=== PATIENT | female | born 1935 | race Caucasian/White ===

== ENCOUNTER 2019-04-24 07:06 | Observation (INO) | payer MEDICARE ==
[2019-04-24 08:01] LABS: #Basophils 0.1 thou/uL (0.0-0.2); #Eosinphils 0.1 thou/uL (0.0-0.7); #Monocytes 0.7 thou/uL (0.11-0.59); %Basophils 0.7 % (0.0-1.0); %Eosinophils 0.8 % (0.0-10.0); %Lymphocytes 9.2 % (21.0-51.0); %Monocytes 6.3 % (0.0-10.0); Hemoglobin 14.3 g/dL (12.0-16.0); Mean Corpuscular HGB CONC 33.9 g/dL (32.0-36.0); Mean Corpuscular Hemoglobin 32.1 pg (27.0-31.0); Mean Corpuscular Volume 94.7 fL (78.0-98.0); Mean Platelet Volume 9.5 fL (7.4-10.4); Platelet Count 170 thou/uL (130-400); RBC Distribution Width 12.9 % (11.5-14.5); Red Blood Cell (RBC) Count 4.44 mill/uL (4.20-5.40); White Blood Cell (WBC) Count 10.8 thou/uL (4.8-10.8)
--- NOTE | 2019-04-24 08:04 | RAD ---
EXAM: CHEST ONE VIEW HISTORY: Recent fall/syncopal episode. COMPARISON: None FINDINGS: Cardiac silhouette is magnified by projection but does appear mildly enlarged. The pulmonary vasculat ure is within normal limits mild linear densities are seen at the right lung base which may be related to mild scarring versus atelectasis. No consolidation or pleural fluid is identified. Osteope hui is present. Vascular calcifications are seen in the thoracic aorta. Rounded metallic density overlies midline lower neck likely related to due to overlying external jewelry. IMPRESSION: 1. No acute cardiopulmonary process. 2. Linear scarring versus atelectasis right lung base. 3. Mild cardiomegaly. 4. Osteopenia.
--- NOTE | 2019-04-24 08:17 | CT ---
CT Head without IV contrast COMPARISON: None. HISTORY: Syncopal episode and fall. Patient reports vomiting diarrhea after a fall. TECHNIQUE: Axial CT imaging at 5 mm intervals from vertex through skull base without contrast FINDINGS: There is no evidence of an acute infarction, hemorrhage, mass effect, or midline shift. There is decr eased attenuation seen in the periventricular white matter which is nonspecific but likely attributable to chronic small vessel ischemic changes. There is mild cerebral and cerebellar volume l oss. The ventricular system is normal in size, shape, and position for the degree of sulcal atrophy. Visualized paranasal sinuses are clear. There is mild deformity of the calvarium at the vertex, this is probably developmental in origin. No calvarial fracture is generalized. IMPRESSION: 1. No acute intracranial abnormality demonstrated. 2. Chronic small vessel ischemic changes and cerebral volume loss
[2019-04-24 08:23] LABS: ALT (SGPT) 23 U/L (8-55); AST (SGOT) 25 U/L (5-34); Alkaline Phosphatase 80 U/L (40-110); Anion Gap 11 mmol/L (10-20); BUN (Urea Nitrogen) 39 mg/dL (9.8-20.1); Bilirubin, Total 0.5 mg/dL (0.2-1.2); Calc. Creatinine Clearance 0 mL/min (70-130); Calcium 9.2 mg/dL (7.8-10.44); Carbon Dioxide 25 mmol/L (23-31); Chloride 108 mmol/L (98-107); Estimated GFR-MDRD 48; Globulin 2.7 g/dL (2.4-3.5); Glucose 136 mg/dL (83-110); Potassium 4.1 mmol/L (3.5-5.1); Protein, Total 6.7 g/dL (6.0-8.3); Sodium 140 mmol/L (136-145)
[2019-04-24 09:14] LABS: Bacteria/HPF None Seen HPF (None Seen); Bilirubin Negative (Negative); Blood, Urine 2+ (Negative); Clarity Clear (Clear); Glucose, Urine (Dipstick) Normal (Negative); Leukocyte 25 Leu/uL (Negative); Nitrite Negative (Negative); Protein, Urine (Dipstick) 20 mg/dL (Neg-Trace); Squamous Epithelial 0-3 HPF (0-3); Urobilinogen Normal mg/dL (Less than 2)
--- NOTE | 2019-04-24 09:15 | CT ---
EXAM: CTA of the chest HISTORY: Shortness of breath COMPARISON: None TECHNIQUE: Multiple contiguous axial images were obtained a CTA of the chest with contrast per pulmon wilda embolism protocol. 3-D oblique MIP reformats and direct coronal reformats were performed. FINDINGS: HEART: Global cardiomegaly. PULMONARY ARTERIES: Normal in caliber without filling defects to suggest pulmonary emboli. MEDIASTINUM: No hilar or mediastinal lymphadenopathy. LUNGS: No focal infiltrates or masses. PLEURAL SPACE: No pleural effusion or pneumothorax. CHEST WALL SOFT TISSUES: Unremarkable VISUALIZED OSSEOUS STRUCTURES: Degenerative changes in the spine. VISUALIZED SUBDIAPHRAGMATIC STRUCTURES: Moderate left hydronephrosis. IMPRESSION: 1. No evidence of pulmonary thromboembolism 2. Moderate left hydronephrosis. A renal ultrasound is recommended for better evaluation.
[2019-04-24] MEDS ORDERED: ISOVUE-370 76%-LOCM 1 ML ONE (10:15)
[2019-04-24 11:28] LABS: Troponin I 0.021 ng/mL (< 0.028)
[2019-04-24 13:25] VITALS: BMI 17.8
--- NOTE | 2019-04-24 13:57 | MRI ---
MRI BRAIN WITHOUT CONTRAST: INDICATIONS: Syncope. FINDINGS: There is mild cortical volume loss. Ventricles are normal in size and position, given the degree of a trophy. No evidence of restricted diffusion. No mass or edema. Mild to moderate chronic ischemic white matter changes. No acute process identified. Intracranial and internal carotid arteries and cerebral arteri es show flow voids. IMPRESSION: Moderate chronic ischemic white matter change. No acute process identified. POS: [facility]
--- NOTE | 2019-04-24 14:01 | ULT ---
RENAL ULTRASOUND: INDICATIONS: Evidence of left hydronephrosis noted on CT earlier today. FINDINGS: There is bilateral hydronephrosis, greater on the left. There are multiple calculi in the left kidney with the larger one measuring up to 2 cm. There are two right renal cystic lesions, the largest leti uring approximately 2.5 cm. The urinary bladder is distended and unremarkable. IMPRESSION: 1. Bilateral hydronephrosis, greater on the left. 2. Left renal calculi. 3. Right renal cyst. Consider IVP or CT abdomen and pelvis to assess ureters. POS: [facility]
--- NOTE | 2019-04-24 14:18 | ULT ---
CAROTID DOPPLER: Ultrasound Doppler study is performed on the extracranial carotid arteries. INDICATION: Syncope. TECHNIQUE: Color Doppler, spectral analysis, and velocity recordings obtained. FINDINGS: Ultrasound images show mild intimal thickening throughout both systems. Mild echogenic plaque. Velocity recordings are within normal range. No evidence of hemodynamically significant stenosis. Vertebral arteries show antegrade flow. IMPRESSION: 1. Ultrasound images show intimal thickening and very mild echogenic plaque. 2. No evidence of hemodynamically significant stenosis by velocity recording. POS: [facility]
[2019-04-24] MEDS ORDERED: Ondansetron PF 4 MG/2 ML Vial IVP PRN (15:13)
[2019-04-24] MEDS ORDERED: Ondansetron ODT 4 MG TAB SL PRN (15:13)
[2019-04-24 16:07] LABS: Troponin I Less than 0.010 ng/mL (< 0.028)
[2019-04-24] MEDS ORDERED: Acetaminophen 325 MG TAB PO PRN (16:45)
[2019-04-24] MEDS: Sodium Chloride 0.9% 1,000 ML IV SCH (17:17)
--- NOTE | 2019-04-24 18:24 | HP ---
PRIMARY CARE PHYSICIAN: None. CHIEF COMPLAINT: Syncope. HISTORY OF PRESENT ILLNESS: Ms. Dominguez is an 83-year-old female with no medical history, who had presented to the ED earlier today after she had experienced a syncopal episode at home this morning while her and her were packing for a road trip up to [place] for a family . She states that earlier this morning, she had one episode of nausea, vomiting, and diarrhea, and while she was packing her clothes, she stated that she had started to feel dizzy and shortly after, had fainted, the caught her and had lowered her down to the bed before calling EMS to bring her to the ED. The stated that she was out for roughly 2 to 5 minutes before waking up and seemed to be at her baseline. The patient denied any fever, chills, any headache, blurred vision, dizziness, any chest pain, palpitations, shortness of breath, abdominal pain, nausea, or vomiting. She states that she feels fine without any further symptoms. During her workup in the ED, she underwent a CT of her head which showed no acute disease findings, however, did show some chronic small-vessel changes. Portable chest x-ray was also performed and showed no acute findings, however, did show some linear scarring versus atelectasis in right lung base with mild cardiomegaly. Her D-dimer was found to be elevated above 3. Therefore, CTA of the chest was performed; however, showed no evidence of PE at this time and moderate left hydronephrosis, which had recommended a renal ultrasound for better evaluation. The patient's blood pressure and other vital signs remained stable. However, her orthostatic vital signs were positive for orthostatic hypotension. Her serial troponins were found to be negative x3. Therefore, she was transferred up to the floor for further workup. REVIEW OF SYSTEMS: All other systems reviewed and found to be negative unless mentioned in HPI. PAST MEDICAL HISTORY: None. PAST SURGICAL HISTORY: None. PSYCHIATRIC HISTORY: None. SOCIAL HISTORY: The patient is a nonsmoker, nondrinker, and has denied any illicit drug use. KNOWN ALLERGIES: No known drug allergies. CURRENT HOME MEDICATIONS: None. PHYSICAL EXAMINATION: VITAL SIGNS: Blood pressure 137/73, pulse 60, respirations 14, temperature 97.7, and O2 saturation 98% on room air. GENERAL: The patient is awake, alert, and oriented x3. She is currently lying comfortably in bed and in no acute distress. Her is at bedside. HEENT: Atraumatic, normocephalic. Pupils are round and reactive to light. Extraocular muscles intact. Moist mucous membranes noted. NECK: Soft and supple. Trachea midline. CARDIOVASCULAR: Positive S1 and S2. Regular rate and rhythm. No murmur auscultated. RESPIRATORY: Clear to auscultation bilaterally. No wheezes, rales, or rhonchi. ABDOMEN: Soft, nontender. Bowel sounds present. EXTREMITIES: Moves all extremities equal. Pedal and radial pulses 2+ bilaterally. No edema noted. NEUROLOGIC: Cranial nerves 2 through 12 grossly intact. No focal deficits noted. Speech intact and normal. Gait not assessed. SKIN: Warm, dry and intact. No rashes. No ulceration noted. PSYCHIATRIC: Good mood and affect. LABORATORY DATA: WBC 10.8, RBC 4.44, hemoglobin 14.3, and platelets 170. D-dimer 3.09. Sodium 140, potassium 4.1, anion gap 11, BUN 39, creatinine 1.09, estimated GFR 48, glucose 136, AST 25, ALT 23, and alkaline phosphatase 80. Troponin less than 0.010 x3. DIAGNOSTIC IMAGING: Portable chest x-ray showed no acute findings, however, did show some mild cardiomegaly. CT of the brain showed no acute intracranial abnormality, however, did show some chronic small-vessel ischemic changes and cerebral volume loss. CT of the chest with and without contrast showed no evidence of PE, however, did show moderate left hydronephrosis that had recommended a renal ultrasound for better evaluation. ASSESSMENT AND PLAN: 1. Syncope, the patient's orthostatic vital signs were positive at this time. Therefore, she will be started on gentle hydration and monitored on telemetry for any cardiac arrhythmia. She will also undergo an echocardiogram, an MRI, and a carotid Doppler for further evaluation. 2. Left hydronephrosis. This was found on CTA and had recommended a renal ultrasound, therefore, this will be ordered for further evaluation and further workup or management will be done post-ultrasound results. 3. Deep venous thrombosis and gastrointestinal prophylaxis. 4. Code status, full code. 5. Surrogate decision maker is her spouse, Oleksandr. 6. Disposition pending further workup and clinical findings. Job ID: [id number]
[2019-04-24] MEDS ORDERED: Famotidine 20 MG TAB PO SCH (21:00)
[2019-04-25 05:06] LABS: #Basophils 0.1 thou/uL (0.0-0.2); #Eosinphils 0.2 thou/uL (0.0-0.7); #Lymphocytes 1.5 thou/uL (1.20-3.40); #Monocytes 0.5 thou/uL (0.11-0.59); #Neutrophils 3.2 thou/uL (1.40-6.50); %Basophils 1.2 % (0.0-1.0); %Lymphocytes 27.1 % (21.0-51.0); %Monocytes 9.4 % (0.0-10.0); %Neutrophils 59.2 % (42.0-75.0); Hemoglobin 12.8 g/dL (12.0-16.0); Mean Corpuscular HGB CONC 32.8 g/dL (32.0-36.0); Mean Corpuscular Hemoglobin 31.9 pg (27.0-31.0); Mean Corpuscular Volume 97.3 fL (78.0-98.0); Mean Platelet Volume 9.6 fL (7.4-10.4); Platelet Count 169 thou/uL (130-400); RBC Distribution Width 13.2 % (11.5-14.5); Red Blood Cell (RBC) Count 4.02 mill/uL (4.20-5.40); White Blood Cell (WBC) Count 5.4 thou/uL (4.8-10.8)
[2019-04-25 05:32] LABS: Anion Gap 9 mmol/L (10-20); BUN (Urea Nitrogen) 23 mg/dL (9.8-20.1); Calc. Creatinine Clearance 39 mL/min (70-130); Calcium 8.7 mg/dL (7.8-10.44); Carbon Dioxide 26 mmol/L (23-31); Chloride 109 mmol/L (98-107); Estimated GFR-MDRD 72; Glucose 84 mg/dL (83-110); Potassium 3.8 mmol/L (3.5-5.1); Sodium 140 mmol/L (136-145)
[2019-04-25] MEDS ORDERED: Enoxaparin Sodium 40 MG/0.4 ML SYRINGE SC SCH (09:00)
--- NOTE | 2019-04-25 09:13 | CON ---
DATE OF CONSULTATION: REASON FOR CONSULTATION: Syncope. HISTORY OF PRESENT ILLNESS: Ms. Dominguez is an 83-year-old woman with no previous history of underlying coronary artery disease. She takes no current medicines at home. She recently presented with syncopal episode. She had little to no warning. She states she was on her way to a in [place]. They were packing the car. Her states he found her on the floor. No chest pain, pressure, nausea, vomiting, or other associated symptoms were present. Again, she has no previous history of underlying coronary artery disease. Her echo performed on 05/14/2019 did suggest LVEF 60% to 65% with mild concentric LVH in addition to severe TR and [id number] pulmonary hypertension. CT scan of the chest was performed to rule out PE and was negative. She did have left hydronephrosis. PAST MEDICAL HISTORY: None. PAST SURGICAL HISTORY: None. SOCIAL HISTORY: None. HOME MEDICATIONS: None. ALLERGIES: NONE. REVIEW OF SYSTEMS: A 10-point review of systems is reviewed as above, otherwise negative. PHYSICAL EXAMINATION: GENERAL: The patient appears of a low body weight. VITAL SIGNS: Blood pressure 136/74, pulse 89, temperature 97.6. NEUROLOGIC: The patient is alert and oriented x3 with no focal neurologic deficits. HEENT: Sclerae without icterus. Mouth has moist mucous membranes with normal pallor. NECK: No JVD. Carotid upstroke brisk. No bruits bilaterally. LUNGS: Clear to auscultation with unlabored respirations. BACK: No scoliosis or kyphosis. CARDIAC: Regular rate and rhythm with normal S1 and S2. No S3 or S4 noted. No significant rubs, murmurs, thrills, or gallops noted throughout the precordium. PMI is not displaced. There is no parasternal heave. ABDOMEN: Soft, nontender, nondistended. No peritoneal signs present. No hepatosplenomegaly. No abnormal striae. EXTREMITIES: 2+ femoral and 2+ dorsalis pedis pulses. No cyanosis, clubbing, or edema. SKIN: No gross abnormalities. PERTINENT LABORATORY DATA: Hemoglobin 12.8, hematocrit 39.1. Creatinine 0.77. Troponin negative. EKG showed normal sinus rhythm, nonspecific ST-T wave changes. IMPRESSION: Syncope. RECOMMENDATIONS: Ms. Dominguez does admit to maybe having a decreased p.o. intake. She did tilt slightly yesterday. Her monitor has been within normal limits. Her EKG shows nonspecific changes. Her LVEF is normal. At this point, I would recommend a 3-week event recorder to assess for any significant dysrhythmias at home. I also recommend close outpatient followup. The patient is agreeable. From my standpoint, it would be okay for discharge from a CV standpoint with close outpatient followup. Job ID: [id number]
[2019-04-25] MEDS: Sodium Chloride 0.9% 1,000 ML IV SCH (11:09)
[2019-04-25 11:49] VITALS: BP 144/87; TEMP 98.1
[2019-04-25] MEDS ORDERED: Famotidine 20 MG TAB PO SCH (21:00)
--- NOTE | 2019-04-27 11:42 | DIS ---
DATE OF ADMISSION: 04/24/2019 DATE OF DISCHARGE: 04/25/2019 DISCHARGE DISPOSITION: Home. FOLLOWUP: 1. Follow up with primary care physician, Dr. Mena in 1 week. 2. Follow up with Cardiology, Dr. Forman. Event monitor will be arranged by arranged by Cardiology. The patient was seen and examined on the day of discharge. DIAGNOSTIC TESTS: CT scan of the brain was negative for acute findings. It showed chronic small-vessel ischemic changes and cerebral volume loss. Chest x-ray was negative for infiltrate or edema. CT angiogram of the chest in the emergency room was negative for pulmonary embolism. It showed moderate left-sided hydronephrosis. Renal ultrasound showed bilateral hydronephrosis greater on the left with left renal calculi and right renal cyst. Echocardiogram showed left ventricular ejection fraction of 60% to 65% with grade 1 of 3 diastolic dysfunction, mild concentric left ventricular hypertrophy, moderately dilated left atrium and severe tricuspid regurgitation. BRIEF HOSPITAL COURSE: The patient is an 83-year-old female who presented to the hospital after a syncopal episode. Please refer to the history and physical for further details. The patient was admitted to the telemetry unit with a diagnosis of syncope. She was found to have positive orthostatic vitals. Her BUN on admission was 39 that improved to 23 on IV hydration. She was found to have elevated D-dimer. However, CT angiogram of the chest was negative. She was evaluated by Cardiology. Cardiology recommended an outpatient event monitor. She appears stable for discharge and has been cleared by Cardiology. Fall precaution was emphasized. She will require a close outpatient followup. The patient was also found to have moderate left-sided hydronephrosis on the CT scan of the chest. Renal ultrasound showed bilateral hydronephrosis, greater on the left with left renal calculi and right renal cyst. She would require IVP or CT abdomen and pelvis to assess the ureters. Primary care physician advised to follow. FINAL DIAGNOSES: 1. Syncope, suspected to be secondary to dehydration/orthostatic hypotension. Event monitor has been arranged. 2. Prerenal azotemia secondary to dehydration. 3. Bilateral hydronephrosis with left renal calculi and right renal cyst. She will require a CT scan of the abdomen and pelvis or IVP as outpatient. Primary care physician advised to follow. 4. Chronic kidney disease, stage 2. 5. Mild hyperglycemia. Blood sugar on admission was 136. Hemoglobin A1c as outpatient with next blood work is recommended. PLAN: Plan of care was discussed with the patient in detail. She stated understanding. The patient was advised to follow up with Dr. Forman as outpatient. Job ID: [id number]
== END 2019-04-25 12:40 | disposition home or self-care (01) ==
LOC: ERS 07:06 → 2SE 12:38
PROVIDERS: ADMIT Internal Medicine; ATTEND Internal Medicine
DX: R55 Syncope and collapse (principal); N13.2 Hydronephrosis with renal and ureteral calculous obstruction; Q61.02 Congenital multiple renal cysts; E86.0 Dehydration; R73.9 Hyperglycemia, unspecified; N18.2 Chronic kidney disease, stage 2 (mild); Z79.82 Long term (current) use of aspirin
CPT/HCPCS: 70450; 70551; 71045; 71275; 76770; 80048; 80053; 84484 ×2; 85025 ×2; 85379; 93005; 93306; 93880; 96372; 97139; 99285; G0378 ×3; 36415; 81003; 81015; J1650; Q9966

== ENCOUNTER 2019-06-26 09:14 | Outpatient (CLI) | payer MEDICARE ==
--- NOTE | 2019-06-26 10:03 | ULT ---
THYROID ULTRASOUND: INDICATION: Thyroid mass. TECHNIQUE: Grayscale and color Doppler images were obtained of the thyroid gland. COMPARISON: None. FINDINGS: Right thyroid lobe: The right thyroid lobe measures 4.5 x 1.7 x 1.5 cm. There is a 0.8 x 0.9 x 0.8 cm solid isoechoic nodule within the mid aspect of the right thyroid lobe with internal punctate calcifications consistent with a TI-RADS 4 lesion. Smaller TI-RADS 3 lesion measuring 6 mm is seen wi thin the posterior aspect of the mid right thyroid lobe. Small partially cystic nodule is seen within the lower pole of the right thyroid lobe. TI-RADS 3 lesion is seen within the superior pole of the right thyroid lobe measuring 0.9 cm. Thyroid isthmus: The thyroid isthmus measures 0.44 cm. Left thyroid lobe: The left thyroid lobe measures 4.6 x 1.4 x 1.4 cm. There is an isoechoic mixed jessy id and cystic nodule involving the inferior pole of the left thyroid lobe, measuring 2.0 x 1.1 x 1.5 cm, consistent with a TI-RADS 3 lesion. There is a 5 mm cyst seen within the superior pole the le ft thyroid lobe. There is a 4 mm TI-RADS 3 lesion within the lower pole of the left thyroid lobe. IMPRESSION: 1. Multinodular goiter. 2. TI-RADS 4 lesion within the mid right thyroid lobe anteriorly. Follow-up ultrasound in one year is recommended to document stability. 3. TI-RADS 3 lesion involving the inferior pole the left thyroid lobe. Follow-up ultrasound in one ye ar is recommended to document stability. Transcribed Date/Time: 06/26/2019 10:11 AM
== END 2019-06-26 09:15 | disposition home or self-care (01) ==
LOC: BICULT 09:14
PROVIDERS: ATTEND Internal Medicine Cardiovascular Disease
DX: E04.2 Nontoxic multinodular goiter (principal); E07.9 Disorder of thyroid, unspecified
CPT/HCPCS: 76536

== ENCOUNTER 2019-07-18 15:10 | Emergency (ER) | payer MEDICARE ==
[2019-07-18 15:42] LABS: Hemoglobin 13.4 g/dL (12.0-16.0); Mean Corpuscular HGB CONC 34.1 g/dL (32.0-36.0); Mean Corpuscular Hemoglobin 32.2 pg (27.0-31.0); Mean Corpuscular Volume 94.5 fL (78.0-98.0); Mean Platelet Volume 9.3 fL (7.4-10.4); Platelet Count 192 thou/uL (130-400); RBC Distribution Width 12.8 % (11.5-14.5); Red Blood Cell (RBC) Count 4.16 mill/uL (4.20-5.40); White Blood Cell (WBC) Count 10.9 thou/uL (4.8-10.8)
[2019-07-18 15:47] LABS: Bacteria/HPF 4+ HPF (None Seen); Bilirubin Negative (Negative); Blood, Urine 2+ (Negative); Clarity Turbid (Clear); Glucose, Urine (Dipstick) Normal (Negative); Leukocyte 500 Leu/uL (Negative); Nitrite 2+ (Negative); Protein, Urine (Dipstick) 100 mg/dL (Neg-Trace); Squamous Epithelial None Seen HPF (0-3); Urobilinogen Normal mg/dL (Less than 2); WBC/HPF Greater than 50 HPF (0-3)
[2019-07-18 15:58] LABS: Band 9 % (5-11); Eosinophils 1 % (0-10); Lymphocytes 5 % (21-51); MDiff Complete? YES; Monocytes 3 % (0-10); Neutrophil 81 % (42-75); Platelet Morphology Comment Appears Adequate; RBC Morphology Normal
[2019-07-18 16:04] LABS: ALT (SGPT) 37 U/L (8-55); AST (SGOT) 31 U/L (5-34); Albumin 3.9 g/dL (3.4-4.8); Alkaline Phosphatase 86 U/L (40-110); Anion Gap 12 mmol/L (10-20); BUN (Urea Nitrogen) 31 mg/dL (9.8-20.1); Bilirubin, Total 0.7 mg/dL (0.2-1.2); Calc. Creatinine Clearance 0 mL/min (70-130); Calcium 9.2 mg/dL (7.8-10.44); Carbon Dioxide 26 mmol/L (23-31); Chloride 98 mmol/L (98-107); Estimated GFR-MDRD 46; Globulin 3.3 g/dL (2.4-3.5); Glucose 124 mg/dL (83-110); Potassium 3.8 mmol/L (3.5-5.1); Protein, Total 7.2 g/dL (6.0-8.3); Sodium 132 mmol/L (136-145)
== END 2019-07-18 16:27 | disposition home or self-care (01) ==
LOC: ERS 15:10
DX: N39.0 Urinary tract infection, site not specified (principal)
CPT/HCPCS: 36415; 80053; 81003; 81015; 85025; 99283

== ENCOUNTER 2019-07-21 16:01 | Emergency (ER) | payer MEDICARE ==
[2019-07-21 17:48] LABS: Hemoglobin 12.6 g/dL (12.0-16.0); Mean Corpuscular Hemoglobin 31.5 pg (27.0-31.0); Mean Corpuscular Volume 95.4 fL (78.0-98.0); Mean Platelet Volume 8.4 fL (7.4-10.4); Platelet Count 227 thou/uL (130-400); RBC Distribution Width 12.9 % (11.5-14.5); Red Blood Cell (RBC) Count 3.99 mill/uL (4.20-5.40); White Blood Cell (WBC) Count 14.9 thou/uL (4.8-10.8)
[2019-07-21 18:10] LABS: ALT (SGPT) 34 U/L (8-55); AST (SGOT) 27 U/L (5-34); Albumin 3.5 g/dL (3.4-4.8); Alkaline Phosphatase 85 U/L (40-110); Anion Gap 10 mmol/L (10-20); BUN (Urea Nitrogen) 26 mg/dL (9.8-20.1); Bilirubin, Total 0.5 mg/dL (0.2-1.2); Calc. Creatinine Clearance 0 mL/min (70-130); Calcium 9.1 mg/dL (7.8-10.44); Carbon Dioxide 27 mmol/L (23-31); Chloride 98 mmol/L (98-107); Estimated GFR-MDRD 37; Globulin 3.1 g/dL (2.4-3.5); Glucose 124 mg/dL (83-110); Potassium 3.4 mmol/L (3.5-5.1); Protein, Total 6.6 g/dL (6.0-8.3); Sodium 132 mmol/L (136-145)
[2019-07-21 18:16] LABS: MDiff Complete? YES
[2019-07-21 18:17] LABS: Band 16 % (5-11); Eosinophils 1 % (0-10); Lymphocytes 5 % (21-51); Monocytes 5 % (0-10); Neutrophil 72 % (42-75); Platelet Morphology Comment Appears Adequate; RBC Morphology Normal; Reactive Lymphocytes 1 % (0-10)
[2019-07-21 19:07] LABS: Bacteria/HPF 4+ HPF (None Seen); Bilirubin Negative (Negative); Blood, Urine 2+ (Negative); Clarity Extra Turbid (Clear); Glucose, Urine (Dipstick) Normal (Negative); Leukocyte 500 Leu/uL (Negative); Nitrite Unable to Interpret (Negative); Protein, Urine (Dipstick) 70 mg/dL (Neg-Trace); RBC/HPF Greater than 50 HPF (0-3); Squamous Epithelial 0-3 HPF (0-3); Urobilinogen Normal mg/dL (Less than 2); WBC/HPF Greater than 50 HPF (0-3)
[2019-07-21 19:39] LABS: Magnesium 1.9 mg/dL (1.6-2.6)
[2019-07-21 20:00] LABS: CKMB 2.2 ng/mL (0-6.6)
[2019-07-21 20:49] LABS: Troponin I 0.032 ng/mL (< 0.028)
--- NOTE | 2019-07-21 21:07 | RAD ---
EXAM: Portable chest PROVIDED CLINICAL HISTORY: Fever COMPARISON: 04/24/2019 FINDINGS: Cardiac and mediastinal silhouette is unchanged in appearance. Vascular calcification involves the ao rtic arch. No focal consolidation, pleural fluid or pneumothorax evident. IMPRESSION: No evidence for an acute cardiopulmonary process.
== END 2019-07-21 21:25 | disposition home or self-care (01) ==
LOC: ERS 16:01
DX: N39.0 Urinary tract infection, site not specified (principal); R79.89 Other specified abnormal findings of blood chemistry
CPT/HCPCS: 36415; 71045; 80053; 81003; 81015; 82550; 82553; 83735; 83880; 84484; 85025; 87804; 93005; 94760; 96360; 96361

== ENCOUNTER 2020-02-25 09:04 | Outpatient (CLI) | payer MEDICARE ==
--- NOTE | 2020-02-25 09:50 | MMO ---
Bilateral MAMMO Bilat Screen [facility]. CLINICAL HISTORY: Patient is 84 years old and is seen for screening. The patient has the following family history of breast cancer: sister, malignant (generic). The patient has no personal history of cancer. VIEWS: The views performed were: bilateral craniocaudal with tomosynthesis and bilateral mediolateral oblique with tomosynthesis. FILMS COMPARED: The present examination has been compared to prior imaging studies performed at [facility] on 04/09/2013, 04/11/2013, 09/15/2014 and 12/17/2015. This study has been interpreted with the assistance of computer-aided detection. MAMMOGRAM FINDINGS: The breasts are heterogeneously dense, which could obscure a lesion on mammography. There are no suspicious masses, suspicious calcifications, or new areas of architectural distortion. IMPRESSION: THERE IS NO MAMMOGRAPHIC EVIDENCE OF MALIGNANCY. A ROUTINE FOLLOW-UP MAMMOGRAM IN 1 YEAR IS RECOMMENDED. THE RESULTS OF THIS EXAM WERE SENT TO THE PATIENT. ACR BI-RADS Category 1 - Negative MAMMOGRAPHY NOTE: 1. A negative mammogram report should not delay a biopsy if a dominant of clinically suspicious mass is present. 2. Approximately 10% to 15% of breast cancers are not detected by mammography. 3. Adenosis and dense breasts may obscure an underlying neoplasm. Reported by: MIRTHA ROOT MD Electonically Signed: [id number]
== END 2020-02-25 09:05 | disposition home or self-care (01) ==
LOC: BICMAMMO 09:04
PROVIDERS: ATTEND Family Medicine
DX: Z12.31 Encounter for screening mammogram for malignant neoplasm of breast (principal); Z80.3 Family history of malignant neoplasm of breast
CPT/HCPCS: 77063; 77067

== ENCOUNTER 2020-03-24 09:13 | Outpatient (CLI) | payer MEDICARE ==
--- NOTE | 2020-03-24 13:04 | ULT ---
ULTRASOUND THYROID: Date: 03/24/2020 HISTORY: 84-year-old female follow-up multiple thyroid nodules COMPARISON: 06/26/2019 FINDINGS: Thyroid dimensions: Isthmus: 0.3 AP Right lobe: 4.5 x 1.2 x 1.5 cm. Left lobe: 4.7 x 1.3 x 1.1 cm Thyroid parenchymal echogenicity:Normal. Number of thyroid nodules: Numerous, at least 11. These include many subcentimeter nodules. There is some uncertainty correlating the previously described nodules to the current ones, with inco nsistency in the labeling the locations of the nodules by the sonographers between the 2 studies. Nodule # 1: Location: Right upper-mid pole anteriorly: Size: 0.9 x 0.9 x 0.5 cm. Composition: Solid: 2 points. Echogenicity: Hypoechoic: 2 points Shape: Wider than tall: 0 points Margin: Smooth: 0 points Echogenic foci: None: 0 points Total points: 4 TIRADS category:TR 4: Moderately suspicious. Recommendation: FNA if greater than or equal to 1.5 cm. Follow if greater than or equal to 1 cm (at 1 , 2, 3, and 5 years). This is less than 1 cm, and therefore no follow-up is recommended for this one. Nodule # 2: Location: Right lower pole.: Size: 1.1 x 0.6 x 0.7 cm.. Composition: Mixed solid and cystic: 1 point. Echogenicity: Hypoechoic: 2 points Shape: Wider than tall: 0 points Margin: Smooth: 0 points Echogenic foci: Punctate echogenic foci: 3 points Total points: 6 TIRADS category:TR 4: Moderately suspicious. Recommendation:FNA if greater than or equal to 1.5 cm. Follow if greater than or equal to 1 cm (at 1, 2, 3, and 5 years). This is 1.1 cm, and therefore follow-up will be recommended. Nodule # 3: Location: Left lower pole.: Size: 1.5 x 1.6 x 1.1 cm. Composition: Mixed solid and cystic: 1 point. Echogenicity: Hypoechoic: 2 points Shape: Wider than tall: 0 points Margin: Smooth: 0 points Echogenic foci: Punctate echogenic foci: 3 points Total points: 6 TIRADS category:TR 4: Moderately suspicious. Recommendation:FNA if greater than or equal to 1.5 cm. Follow if greater than or equal to 1 cm (at 1, 2, 3, and 5 years). This is minimally greater than 1.5 cm, and therefore, despite stability since 06/26/2019, ultrasound-g uided fine-needle aspiration is recommended. IMPRESSION: 1) Recommend ultrasound-guided fine-needle aspiration biopsy of a TIRADS category:4 nodule at left lo wer pole. 2) there are 2 additional TIRADS category 4 nodules in the right lobe, for which serial follow-up ult rasounds (at 1, 2, 3, and 5 years) is recommended for one of them.
== END 2020-03-24 09:14 | disposition home or self-care (01) ==
LOC: BICULT 09:13
PROVIDERS: ATTEND Otolaryngology Plastic Surgery within the Head & Neck
DX: E04.2 Nontoxic multinodular goiter (principal)
CPT/HCPCS: 76536

== ENCOUNTER 2020-10-13 08:21 | Outpatient (CLI) | payer MEDICARE | END 2020-10-13 08:22 | disposition home or self-care (01) | LOC: BICMAMMO 08:21 | PROVIDERS: ATTEND Family Medicine | DX: Z13.820 Encounter for screening for osteoporosis (principal); M81.0 Age-related osteoporosis without current pathological fracture; Z78.0 Asymptomatic menopausal state | CPT/HCPCS: 77080 ==

== ENCOUNTER 2020-11-18 14:11 | Outpatient (CLI) | payer MEDICARE | END 2020-11-18 14:12 | disposition home or self-care (01) | LOC: BICRAD 14:11 | PROVIDERS: ATTEND Internal Medicine Rheumatology | DX: M81.0 Age-related osteoporosis without current pathological fracture (principal); M85.88 Other specified disorders of bone density and structure, other site | CPT/HCPCS: 72072 ==

== ENCOUNTER 2021-04-19 12:32 | Outpatient (CLI) | payer MEDICARE | END 2021-04-19 12:33 | disposition home or self-care (01) | LOC: BICULT 12:32 | PROVIDERS: ATTEND Family Medicine | DX: N39.0 Urinary tract infection, site not specified (principal); N28.1 Cyst of kidney, acquired | CPT/HCPCS: 76770 ==

== ENCOUNTER 2022-03-24 11:05 | Outpatient (CLI) | payer MEDICARE | END 2022-03-24 11:06 | disposition home or self-care (01) | LOC: BICRAD 11:05 | PROVIDERS: ATTEND Family Medicine | DX: M25.572 Pain in left ankle and joints of left foot (principal) ==

== ENCOUNTER 2022-10-18 13:52 | Outpatient (CLI) | payer MEDICARE | END 2022-10-18 13:53 | disposition home or self-care (01) | LOC: BICULT 13:52 | PROVIDERS: ATTEND Otolaryngology Plastic Surgery within the Head & Neck | DX: E04.1 Nontoxic single thyroid nodule (principal); E04.2 Nontoxic multinodular goiter | CPT/HCPCS: 76536 ==

== ENCOUNTER 2022-10-19 15:08 | Outpatient (CLI) | payer MEDICARE | END 2022-10-19 15:09 | disposition home or self-care (01) | LOC: BICMAMMO 15:08 | PROVIDERS: ATTEND Internal Medicine Rheumatology | DX: M81.0 Age-related osteoporosis without current pathological fracture (principal) | CPT/HCPCS: 77080 ==